=== PATIENT | female | born 1980 | race Asian ===

== ENCOUNTER 2017-08-16 17:07 | Emergency (ER) | payer SELFPAY ==
[~2017-08-16] VITALS: Ht 157.5 cm; Wt 58.4 kg
[~2017-08-16 17:07] MED LIST: ALPR-475 PO; BUPR100T6 PO; OXYC-432 PO; SPIR50TA2 PO; TRAM50TA2 PO
[2017-08-16 18:00] LABS: MICROSCOPIC INDICATED
[2017-08-16 18:07] LABS: CULTURE INDICATED? YES
[2017-08-16] MEDS ORDERED: ACETAMINOPHEN 325 MG TABLET ONE (18:23)
[2017-08-16] MEDS ORDERED: CEFTRIAXONE 1,000 MG ONE (18:23)
[2017-08-16] MEDS ORDERED: ACETAMINOPHEN 325 MG TABLET PO ONE (18:30)
[2017-08-16] MEDS ORDERED: CEFTRIAXONE 1,000 MG IM ONE (18:30)
[2017-08-16 18:36] LABS: ALANINE AMINOTRANSFERASE 24 U/L (12-78); ALBUMIN 3.7 g/dL (3.4-5.0); ANION GAP 7 mmol/L (5-15); CALCIUM 8.9 mg/dL (8.5-10.1); CHLORIDE 99 mmol/L (98-107); CREATININE 1.03 mg/dL (0.55-1.02)
[2017-08-16 18:38] LABS: ALKALINE PHOSPHATASE 57 U/L (45-117); BILIRUBIN,TOTAL 0.5 mg/dL (0.2-1.0); TOTAL PROTEIN 8.4 g/dL (6.4-8.2)
[2017-08-16 18:39] VITALS: BP 118/74
[2017-08-16 18:40] LABS: MEAN CORPUSCULAR HEMOGLOBIN 28.5 pg (27.0-34.8); MEAN CORPUSCULAR HGB CONC 33.5 g/dL (32.4-35.8); MEAN CORPUSCULAR VOLUME 85.1 fL (80-100); MEAN PLATELET VOLUME 8.7 fL (7.4-10.4); PLATELET COUNT 236 x10^3/uL (130-400); RED BLOOD COUNT 5.13 x10^6/uL (3.82-5.3); RED CELL DISTRIBUTION WIDTH 12.3 % (9.6-15.2)
[2017-08-16 19:16] LABS: MD YES
[2017-08-16 19:18] LABS: BANDS%(MANUAL) 27 % (0-7); LYMPH#(MANUAL) 1.14 x10^3/uL (1-3.4); LYMPHS% (MANUAL) 7 % (22-44); MONOS#(MANUAL) 0.49 x10^3/uL (0.3-2.7); MONOS% (MANUAL) 3 % (2-9); SEG#(MANUAL) 10.27 x10^3/uL (1.8-6.8); SEGS% (MANUAL) 63 % (42-75)
[2017-08-16 19:19] LABS: <PLATELET ESTIMATE> ADEQUATE; <PLT MORPHOLOGY> NORMAL PLT MORPH; <RBC MORPHOLOGY> NORMAL
== END 2017-08-16 18:57 | disposition home or self-care (01) ==
LOC: ED 18:40
DX: N10 Acute pyelonephritis (principal)
CPT/HCPCS: 36415; 80053; 81001; 85025; 87077; 87086; 96372; 99284; J0696; 87186

== ENCOUNTER 2019-06-02 21:10 | Emergency (ER) | payer SELFPAY ==
[~2019-06-02] VITALS: Ht 157.5 cm; Wt 63.0 kg
[~2019-06-02 21:10] MED LIST changes: -ALPR-475 PO; +ALPR0.5T7 PO; -SPIR50TA2 PO; +SPIR50TA4 PO
[2019-06-02] MEDS ORDERED: ONDANSETRON 2MG/ML, 2ML ONE (21:23)
--- NOTE | 2019-06-02 21:25 | NUR ---
THIS IS A 38 YO F BIB EMS FOR SUDDENT ONSET OF CHEST NUMBNESS THAT RADIATES DOWN INTO UPPR EXTREMITIES BILATERALLY. PT ALSO C/O NAUSEA AND VOMITING. PT DENIES ABD PAIN. PT REPORTS THAT SHE TOOK CBD OIL AT 1999 AND THEN ATE FAST FOOD. S/S BEGAN ABOUT A HALF HOUR AFTER THAT. DENIES CP/SOB/COUGH. RESP EVEN AND UNLABORED, NADN. PT IS TACHYCARDIC, OTHER VS WDL. PT IS RESTING ON GURNEY W/ CALL LIGHT IN REACH AND FAMILY AT BEDSIDE. DENIES FURTHER NEEDS AT THIS TIME.
--- NOTE | 2019-06-02 21:28 | NUR ---
PT MEDICATED W/ 4MG ZOFRAN IV AND 1L NS BOLUS PER VERBAL ORDER FROM .
[2019-06-02 22:23] LABS: BASOPHILS # (AUTO) 0.05 x10^3/uL (0-0.1); BASOPHILS % (AUTO) 1 % (0-1); EOSINOPHILS # (AUTO) 0.08 x10^3/uL (0-0.4); EOSINOPHILS % (AUTO) 1 % (1-7); LYMPHOCYTES # (AUTO) 1.53 x10^3/uL (1-3.4); LYMPHOCYTES % (AUTO) 21 % (22-44); MD NO; MEAN CORPUSCULAR HEMOGLOBIN 28.1 pg (27.0-34.8); MEAN CORPUSCULAR HGB CONC 33.2 g/dL (32.4-35.8); MEAN CORPUSCULAR VOLUME 84.8 fL (80-100); MONOCYTES # (AUTO) 0.22 x10^3/uL (0.2-0.8); MONOCYTES % (AUTO) 3 % (2-9); NEUTROPHILS # (AUTO) 5.37 x10^3/uL (1.8-6.8); NEUTROPHILS % (AUTO) 74 % (42-75); PLATELET COUNT 264 x10^3/uL (130-400); RED BLOOD COUNT 4.56 x10^6/uL (3.82-5.3); RED CELL DISTRIBUTION WIDTH 12.4 % (9.6-15.2)
[2019-06-02 22:25] VITALS: BP 131/86
--- NOTE | 2019-06-02 22:26 | NUR ---
PT REFUSED TO PROVIDE URINE SAMPLE AT THIS TIME. WILL TRY IN A BIT.
[2019-06-02] MEDS ORDERED: PLEASE ENTER HEIGHT AND WEIGHT MC SCH (22:30)
[2019-06-02] MEDS ORDERED: SODIUM CHLORIDE 0.9% 1,000ML IVBOLUS ONE (22:30)
[2019-06-02] MEDS ORDERED: ONDANSETRON 2MG/ML, 2ML IVPush ONE (22:30)
[2019-06-02 22:33] LABS: CHLORIDE 110 mmol/L (98-107)
[2019-06-02 22:39] LABS: ALANINE AMINOTRANSFERASE 19 U/L (12-78); ALBUMIN 3.5 g/dL (3.4-5.0); ANION GAP 5 mmol/L (5-15); CALCIUM 8.2 mg/dL (8.5-10.1); CREATININE 0.69 mg/dL (0.55-1.02)
[2019-06-02 22:55] LABS: ALKALINE PHOSPHATASE 39 U/L (45-117); BILIRUBIN,TOTAL 0.3 mg/dL (0.2-1.0)
--- NOTE | 2019-06-02 23:46 | NUR ---
Patient given discharge instructions and they have confirmed that they understand the instructions. Patient ambulatory with steady gait.
== END 2019-06-02 23:47 | disposition home or self-care (01) ==
LOC: ED 21:30
DX: R42 Dizziness and giddiness (principal); R11.2 Nausea with vomiting, unspecified; F12.129 Cannabis abuse with intoxication, unspecified; M54.9 Dorsalgia, unspecified; Z90.710 Acquired absence of both cervix and uterus
CPT/HCPCS: 36415; 80053; 83690; 84703; 85025; 96361; 96374; 99283; J2405; J7030